=== PATIENT | female | born 1970 | race Caucasian/White ===

== ENCOUNTER 2017-04-17 08:49 | Observation (INO) | payer SELFPAY ==
[~2017-04-17] VITALS: Ht 170.2 cm; Wt 55.0 kg
[2017-04-17] VITALS (8 sets, daily range): BP systolic 119–131; BP diastolic 57–68; PULSE 62–79; RESP 16–20; TEMP 97.9–98.6; O2SAT 97–98
--- NOTE | 2017-04-17 09:09 | PD ---
HPI Chief Complaint: Chest Pain Time Seen by Provider: 09:07 Travel History International Travel<30 days: No Contact w/Intl Traveler<30days: No Traveled to known affect area: No History of Present Illness HPI 47-year-old female patient presents to the ER today for left-sided chest pains which she states was initially a 10 out of 10 when she woke up this morning along with nausea, vomiting, shortness of breath. She was given aspirin and nitroglycerin when EMS got there and states that her chest pain is now a 2 out of 10. She denies any previous history of chest pain. She states it radiates up to her jaw and down her left arm. Described as sharp. Modifying Factors: None Associated Signs & Symptoms: Left-sided chest pain Risk Factors: None PFSH Past Medical History Medical History: Denies Significant Hx Diminished Hearing: No Tetanus Vaccination: < 5 Years Influenza Vaccination: No ?: Not LMP: 04/06/17 Past Surgical History Section: Yes Social History Alcohol Use: Yes (weekly) Tobacco Use: Yes (PPD) Substance Use: No Allergies-Medications (Allergen,Severity, Reaction): Coded Allergies: Iodinated Contrast- Oral and IV Dye (Verified Allergy, Severe, 04/17/17) Review of Systems Except as stated in HPI: all other systems reviewed are Neg Physical Exam Narrative GENERAL: Well-developed middle age white female patient currently in mild distress. Awake and oriented 3. SKIN: Focused skin assessment warm/dry. HEAD: Atraumatic. Normocephalic. EYES: Pupils equal and round. No scleral icterus. No injection or drainage. ENT: No nasal bleeding or discharge. Mucous membranes pink and moist. NECK: Trachea midline. No JVD. CARDIOVASCULAR: Regular rate and rhythm. No murmur appreciated. Pulses are present and equal bilaterally. RESPIRATORY: No accessory muscle use. Clear to auscultation. Breath sounds equal bilaterally. GASTROINTESTINAL: Abdomen soft, non-tender, nondistended. Hepatic and splenic margins not palpable. MUSCULOSKELETAL: No obvious deformities. No clubbing. No cyanosis. No edema. NEUROLOGICAL: Awake and alert. No obvious cranial nerve deficits. Motor grossly within normal limits. Normal speech. PSYCHIATRIC: Appropriate mood and affect; insight and judgment normal. Data Data Last Documented VS Vital Signs Date Time Temp Pulse Resp B/P (MAP) Pulse Ox O2 Delivery O2 Flow Rate FiO2 04/17/17 09:00 75 18 98 Nasal Cannula 2.00 04/17/17 08:55 98.6 119/68 (85) Orders Orders Electrocardiogram (04/17/17 09:04) Ckmb (Isoenzyme) Profile (04/17/17 09:04) Complete Blood Count With Diff (04/17/17 09:04) Comprehensive Metabolic Panel (04/17/17 09:04) Magnesium (Mg) (04/17/17 09:04) Prothrombin Time / Inr (Pt) (04/17/17 09:04) Act Partial Throm Time (Ptt) (04/17/17 09:04) Troponin I (04/17/17 09:04) Chest, Single Ap (04/17/17 09:04) Ecg Monitoring (04/17/17 09:04) Bilateral Bp Monitoring (04/17/17 09:04) Iv Access Insert/Monitor (04/17/17 09:04) Oximetry (04/17/17 09:04) Oxygen Administration (04/17/17 09:04) Sodium Chloride 0.9% Flush (Ns Flush) (04/17/17 09:15) CKMB (04/17/17 09:00) CKMB% (04/17/17 09:00) Labs Laboratory Tests Test 04/17/17 09:00 White Blood Count 11.8 TH/MM3 Red Blood Count 4.59 MIL/MM3 Hemoglobin 15.9 GM/DL Hematocrit 45.2 % Mean Corpuscular Volume 98.4 FL Mean Corpuscular Hemoglobin 34.5 PG Mean Corpuscular Hemoglobin Concent 35.1 % Red Cell Distribution Width 12.6 % Platelet Count 377 TH/MM3 Mean Platelet Volume 8.0 FL Neutrophils (%) (Auto) 81.8 % Lymphocytes (%) (Auto) 11.5 % Monocytes (%) (Auto) 5.3 % Eosinophils (%) (Auto) 0.7 % Basophils (%) (Auto) 0.7 % Neutrophils # (Auto) 9.7 TH/MM3 Lymphocytes # (Auto) 1.4 TH/MM3 Monocytes # (Auto) 0.6 TH/MM3 Eosinophils # (Auto) 0.1 TH/MM3 Basophils # (Auto) 0.1 TH/MM3 CBC Comment DIFF FINAL Differential Comment Prothrombin Time 10.9 SEC Prothromb Time International Ratio 1.0 RATIO Activated Partial Thromboplast Time 27.2 SEC Blood Urea Nitrogen 12 MG/DL Creatinine 0.66 MG/DL Random Glucose 72 MG/DL Total Protein 7.5 GM/DL Albumin 4.2 GM/DL Calcium Level 9.0 MG/DL Magnesium Level 1.8 MG/DL Alkaline Phosphatase 89 U/L Aspartate Amino Transf (AST/SGOT) 36 U/L Alanine Aminotransferase (ALT/SGPT) 41 U/L Total Bilirubin 0.7 MG/DL Sodium Level 137 MEQ/L Potassium Level 4.6 MEQ/L Chloride Level 103 MEQ/L Carbon Dioxide Level 20.3 MEQ/L Anion Gap 14 MEQ/L Estimat Glomerular Filtration Rate 95 ML/MIN Total Creatine Kinase 206 U/L Creatine Kinase MB 1.5 NG/ML Creatine Kinase MB % 0.7 % Troponin I LESS THAN 0.02 NG/ML MDM Medical Decision Making Medical Screen Exam Complete: Yes Emergency Medical Condition: Yes Medical Record Reviewed: Yes Interpretation(s) EKG shows NSR, no ST elevation or depression, and no arrhythmias. No significant T-wave inversions. Laboratory Tests Test 04/17/17 09:00 White Blood Count 11.8 TH/MM3 (4.0-11.0) Hemoglobin 15.9 GM/DL (11.6-15.3) Mean Corpuscular Hemoglobin 34.5 PG (27.0-34.0) Neutrophils (%) (Auto) 81.8 % (16.0-70.0) Neutrophils # (Auto) 9.7 TH/MM3 (1.8-7.7) Random Glucose 72 MG/DL (74-106) Carbon Dioxide Level 20.3 MEQ/L (21.0-32.0) Total Creatine Kinase 206 U/L (26-192) Troponin I LESS THAN 0.02 NG/ML Differential Diagnosis Chest pains: ACS versus anxiety attack versus GI versus dysrhythmias Narrative Course Lab work, EKG was unremarkable. Chest x-ray did not show any signs of acute processes. At this point, my plan would be to admit her to chest pain center for further evaluation of this chest pain. She was given aspirin and nitroglycerin glycerin by EMS. Diagnosis Primary Impression: Chest pain Admitting Information Admitting Physician Requests: Admit Robbi Faustin MD Apr 17, 2017 09:09
[2017-04-17] MEDS ORDERED: SODIUM CHLORIDE 0.9% FLUSH 10 ML FLUSH IVF PRN (09:15)
[2017-04-17 09:21] LABS: AUTOMATED NEUTROPHIL # 9.7 TH/MM3 (1.8-7.7); BASOPHIL # 0.1 TH/MM3 (0-0.2); BASOPHIL % 0.7 % (0.0-2.0); EOSINOPHIL # 0.1 TH/MM3 (0-0.4); EOSINOPHIL % 0.7 % (0.0-4.0); HEMATOCRIT 45.2 % (35.0-46.0); HEMO FLAGS DIFF FINAL; LYMPH % 11.5 % (9.0-44.0); LYMPHOCYTE # 1.4 TH/MM3 (1.0-4.8); MEAN CELL VOLUME 98.4 FL (80.0-100.0); MEAN CORPUSCULAR HEMOGLOBIN 34.5 PG (27.0-34.0); MEAN CORPUSCULAR HGB CONC 35.1 % (32.0-36.0); MONO % 5.3 % (0.0-8.0); NEUT % 81.8 % (16.0-70.0); PLATELET COUNT 377 TH/MM3 (150-450); RED BLOOD COUNT 4.59 MIL/MM3 (4.00-5.30); RED CELL DISTRIBUTION WIDTH 12.6 % (11.6-17.2); WHITE BLOOD COUNT 11.8 TH/MM3 (4.0-11.0)
[2017-04-17 09:33] LABS: APTT (PATIENT) 27.2 SEC (24.3-30.1); PROTHROMBIN TIME - PATIENT 10.9 SEC (9.8-11.6)
[2017-04-17 09:42] LABS: ALT (GPT) 41 U/L (10-53)
--- NOTE | 2017-04-17 09:44 | RADRPT ---
EXAM DATE/TIME: 04/17/2017 09:26 [facility] COMPARISON: No previous studies available for comparison. INDICATIONS : Chest pains mid sternal radiating into left arm x2 days. No prior heart issues. MEDICAL HISTORY : None. SURGICAL HISTORY : None. ENCOUNTER: Initial ACUITY: 2 days PAIN SCORE: 9/10 LOCATION: Left chest FINDINGS: A single view of the chest demonstrates the lungs to be symmetrically aerated without evidence of mas s, infiltrate or effusion. The cardiomediastinal contours are unremarkable. Osseous structures are intact. CONCLUSION: 1. No acute cardiopulmonary disease. Azeem Garcia MD on April 17, 2017 at 9:42 Board Certified Radiologist. This report was verified electronically.
[2017-04-17 09:45] LABS: ALKALINE PHOSPHATASE 89 U/L (45-117); CREATINE KINASE 206 U/L (26-192); TOTAL BILIRUBIN ADULT 0.7 MG/DL (0.2-1.0)
[2017-04-17 10:00] LABS: CKMB 1.5 NG/ML (0.5-3.6)
[2017-04-17 10:07] LABS: ANION GAP 14 MEQ/L (5-15); AST (GOT) 36 U/L (15-37); BICARBONATE 20.3 MEQ/L (21.0-32.0); BLOOD UREA NITROGEN 12 MG/DL (7-18); CHLORIDE 103 MEQ/L (98-107); GLOMERULAR FILTRATION RATE 95 ML/MIN (>89); MAGNESIUM 1.8 MG/DL (1.5-2.5); POTASSIUM 4.6 MEQ/L (3.5-5.1); SODIUM (NA) 137 MEQ/L (136-145)
[2017-04-17] MEDS ORDERED: ACETAMINOPHEN 500 MG CPLT PO PRN (11:00)
[2017-04-17] MEDS ORDERED: NITROGLYCERIN 0.4 MG SL 25 TABS/BTL SL PRN (11:00)
[2017-04-17] MEDS ORDERED: ONDANSETRON HCL 4 MG/2 ML VIAL IV PRN (11:00)
[2017-04-17 13:04] LABS: CREATINE KINASE 214 U/L (26-192)
[2017-04-17 13:18] LABS: CKMB 1.6 NG/ML (0.5-3.6)
--- NOTE | 2017-04-17 14:16 | HHI.HP ---
HPI Primary Care Physician No Primary Care Physician Chief Complaint Chest pain History of Present Illness 47-year-old female with no significant medical history presents to emergency room for further evaluation of intermittent chest pain. Onset 10-14 days ago. Location left anterior chest characterized as stabbing. No radiation of pain, reports a numbness sensation in left arm and fingers. Associated symptoms include nausea, dizziness, and "feeling extremely hot." Denying vomiting or shortness of breath. Duration varies, currently chest pain free. No injury, fall, or known trauma. Taking a deep breath makes pain worst. No known relieving factors. Denies similar pain in the past. Reports this morning upon awakening she felt left neck discomfort described as "I slept on if wrong." Then around 8 am she developed severe left anterior chest pain. Her boyfriend reports she grabbed her chest then passed out. He called EMS. She reports only briefly losing consciousness. Review of Systems General: No fatigue,weakness, fever, chills, recent illness, or change in appetite. Has been in her general state of health. HEENT: Intermittent GROSS past 2 weeks. No vision changes, no nasal congestion or drainage, no dysphasia. CV: As stated above. No current chest pain or pressure. No palpitations. Dizziness has resolved. No intermittent leg pain with ambulation. RESP: Reports smoker's cough" nonproductive. No SOB, wheeze, recent URI, or hemoptysis GI: vo nausea resolved. No vomiting, bowel changes, diarrhea, pain, melena, or blood in the stool. 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 Reports regular, unchanged menses. EXT: No lower leg edema, no paraesthesias MS: No discomfort or change in ROM, no recent injury, no trauma or fall NEURO: As stated above. No difficulty with balance, no history of seizures, motor/sensory deficits PSYCH: No current anxiety. No depression, situational stress, or suicidal ideation. History of "easily becoming upset and getting anxious." SKIN: No rashes, no concerning lesions Past Family Social History Allergies: Coded Allergies: Iodinated Contrast- Oral and IV Dye (Verified Allergy, Severe, 04/17/17) Past Medical History None Past Surgical History Reported Medications None Active Ordered Medications Current Medications Medications (Trade) Dose Ordered Sig/Kinjal Route Start Time Stop Time Status Last Admin (NS Flush) 2 ml UNSCH PRN IVF 04/17/17 09:15 (NS Flush) 2 ml BID IV FLUSH 04/17/17 21:00 (Tylenol) 500 mg Q4H PRN PO 04/17/17 11:00 (Zofran Inj) 4 mg Q6H PRN IV 04/17/17 11:00 (Nitrostat Sl) 0.4 mg Q5M PRN SL 04/17/17 11:00 (Aspirin) 325 mg DAILY PO 04/18/17 09:00 Family History Unknown-adopted. Social History No known diabetes, hypertension, coronary artery disease, or hyperlipidemia. Has not seen a PCP in 20 years. Smokes one pack/daily cigarettes since age 28. Occasional alcohol reports 2 beers twice weekly. Denies any illegal drug use. Past cardiac testing None Physical Exam Vital Signs Vital Signs Date Time Temp Pulse Resp B/P (MAP) Pulse Ox O2 Delivery O2 Flow Rate FiO2 04/17/17 12:00 62 04/17/17 11:09 99 Room Air 04/17/17 11:05 98.2 76 18 131/59 (83) 98 04/17/17 11:03 98 Nasal Cannula 2.00 04/17/17 09:00 75 18 98 Nasal Cannula 2.00 04/17/17 08:55 98.6 79 20 119/68 (85) 98 Physical Exam GENERAL: Alert WN, WD, NAD, pleasant, female who appears older than stated age. HEAD: NC, AT EYES: Sclera clear, conjunctiva without injection, pupils equal and round ENT: Mucous membranes pink and moist NECK: Supple, no masses, trachea midline CV: RRR, without murmur, rub, gallop, no JVD, S1-S2 no S3-S4. No carotid bruits. Chest wall nontender with palpation. RESP: Diminished lungs throughout bilateral, no crackles, wheeze, rhonchi, symmetrical chest rise, nonlabored, able to speak in full sentences ABD: Soft, NT, ND, no masses, positive bowel tones BACK: No CVAT EXT: Pulses +24, no dependent edema MS: Normal tone 4 extremities, nontender, no obvious deformities, full range of motion NEURO: CN II through CN XII grossly intact, motor strength 5/5 PSYCH: A+O 3, pleasant affect, appropriate speech, appropriate mood and affect , insight and judgment SKIN: Normal turgor, normal texture, no lesions, no rashes, even hair distribution Laboratory Laboratory Tests Test 04/17/17 09:00 04/17/17 12:02 White Blood Count 11.8 Red Blood Count 4.59 Hemoglobin 15.9 Hematocrit 45.2 Mean Corpuscular Volume 98.4 Mean Corpuscular Hemoglobin 34.5 Mean Corpuscular Hemoglobin Concent 35.1 Red Cell Distribution Width 12.6 Platelet Count 377 Mean Platelet Volume 8.0 Neutrophils (%) (Auto) 81.8 Lymphocytes (%) (Auto) 11.5 Monocytes (%) (Auto) 5.3 Eosinophils (%) (Auto) 0.7 Basophils (%) (Auto) 0.7 Neutrophils # (Auto) 9.7 Lymphocytes # (Auto) 1.4 Monocytes # (Auto) 0.6 Eosinophils # (Auto) 0.1 Basophils # (Auto) 0.1 CBC Comment DIFF FINAL Differential Comment Prothrombin Time 10.9 Prothromb Time International Ratio 1.0 Activated Partial Thromboplast Time 27.2 Blood Urea Nitrogen 12 Creatinine 0.66 Random Glucose 72 Total Protein 7.5 Albumin 4.2 Calcium Level 9.0 Magnesium Level 1.8 Alkaline Phosphatase 89 Aspartate Amino Transf (AST/SGOT) 36 Alanine Aminotransferase (ALT/SGPT) 41 Total Bilirubin 0.7 Sodium Level 137 Potassium Level 4.6 Chloride Level 103 Carbon Dioxide Level 20.3 Anion Gap 14 Estimat Glomerular Filtration Rate 95 Total Creatine Kinase 206 214 Creatine Kinase MB 1.5 1.6 Creatine Kinase MB % 0.7 0.7 Troponin I LESS THAN 0.02 LESS THAN 0.02 Result Diagram: 04/17/1789904/17/17899 Imaging Last Impressions Chest X-Ray 04/17/17903 Signed Impressions: Service Date/Time: Monday, April 17, 2017 09:26 - CONCLUSION: 1. No acute cardiopulmonary disease. Azeem Garcia MD Course EKG Normal sinus rhythm, normal axis, no st t segment changes Caprini VTE Risk Assessment Caprini VTE Risk Assessment: No/Low Risk (score <= 1) Caprini Risk Assessment Model Point Value = 1 Point Value = 2 Point Value = 3 Point Value = 5 Age 41-60 Minor surgery BMI > 25 kg/m2 Swollen legs Varicose veins or History of unexplained or recurrent spontaneous Oral contraceptives or hormone replacement Sepsis (< 1 month) Serious lung disease, including pneumonia (< 1 month) Abnormal pulmonary function Acute myocardial infarction Congestive heart failure (< 1 month) History of inflammatory bowel disease Medical patient at bed rest Age 61-74 Arthroscopic surgery Major open surgery (> 45 min) Laparoscopic surgery (> 45 min) Malignancy Confined to bed (> 72 hours) Immobilizing plaster cast Central venous access Age >= 75 History of VTE Family history of VTE Factor V Leiden Prothrombin [id number] Lupus anticoagulant Anticardiolipin antibodies Elevated serum homocysteine Heparin-induced thrombocytopenia Other congenital or acquired thrombophilia Stroke (< 1 month) Elective arthroplasty Hip, pelvis, or leg fracture Acute spinal cord injury (< 1 month) Prophylaxis Regimen Total Risk Factor Score Risk Level Prophylaxis Regimen 0-1 Low Early ambulation 2 Moderate Order ONE of the following: *Sequential Compression Device (SCD) *Heparin 5000 units SQ BID 3-4 Higher Order ONE of the following medications: *Heparin 5000 units SQ TID *Enoxaparin/Lovenox 40 mg SQ daily (WT < 150 kg, CrCl > 30 mL/min) *Enoxaparin/Lovenox 30 mg SQ daily (WT < 150 kg, CrCl > 10-29 mL/min) *Enoxaparin/Lovenox 30 mg SQ BID (WT < 150 kg, CrCl > 30 mL/min) AND/OR *Sequential Compression Device (SCD) 5 or more Highest Order ONE of the following medications: *Heparin 5000 units SQ TID (Preferred with Epidurals) *Enoxaparin/Lovenox 40 mg SQ daily (WT < 150 kg, CrCl > 30 mL/min) *Enoxaparin/Lovenox 30 mg SQ daily (WT < 150 kg, CrCl > 10-29 mL/min) *Enoxaparin/Lovenox 30 mg SQ BID (WT < 150 kg, CrCl > 30 mL/min) AND *Sequential Compression Device (SCD) Assessment and Plan Assessment and Plan #1 Atypical chest pain-admitted to chest pain center. Rule out with 3 sets of cardiac enzymes and EKG. Will be seen and evaluated by Dr. Irene Carter this afternoon. Discussed possibly of completing an exercise stress test this evening and if unremarkable will discharge later this evening. Patient agreeable to plan of care. #2 Tobacco use-strongly encouraged tobacco cessation. Discussed chest discomfort may be pleuritic in nature from smoking. #3 Syncope episode-continue to monitor on telemetry, possible vagal response. 18:10 Attempted exercise treadmill test. Unable to complete due to leg fatigue and dyspnea. Walked 5:31 seconds, made target heart rate of 79%, requested to stop exam. Dr. Carter notified. Monitor overnight and plan for Lexiscan in am. Aniyah Stafford Apr 17, 2017 14:16
[2017-04-17 16:21] LABS: CREATINE KINASE 171 U/L (26-192)
[2017-04-17 16:33] LABS: CKMB 1.5 NG/ML (0.5-3.6)
--- NOTE | 2017-04-17 16:58 | EKG ---
Date Performed: 04/17/2017 Time Performed: 15:52:32 PTAGE: 47 years EKG: Sinus rhythm NORMAL ECG Since PREVIOUS TRACING , no significant change noted PREVIOUS TRACIN04/17/2017 08.59 DOCTOR: Irene Carter Interpretating Date/Time 04/17/2017 16:56:56
--- NOTE | 2017-04-17 17:00 | EKG ---
Date Performed: 04/17/2017 Time Performed: 08:59:20 PTAGE: 47 years EKG: Sinus rhythm NORMAL ECG NO PREVIOUS TRACING DOCTOR: Irene Carter Interpretating Date/Time 04/17/2017 16:59:00
[2017-04-17] MEDS: SODIUM CHLORIDE 0.9% FLUSH 10 ML FLUSH IV FLUSH SCH (20:03)
[2017-04-18 00:32] VITALS: BP 109/59; PULSE 84; RESP 18; TEMP 98.2; O2SAT 99
[2017-04-18 04:23] VITALS: BP 113/69; PULSE 65; RESP 16; TEMP 98.2; O2SAT 98
[2017-04-18 07:42] VITALS: O2SAT 98
[2017-04-18 07:48] VITALS: BP 109/65; PULSE 72; RESP 18; TEMP 98.5; O2SAT 97
[2017-04-18 08:10] VITALS: PULSE 62
[2017-04-18] MEDS ORDERED: ASPIRIN 325 MG TAB PO SCH (09:00)
[2017-04-18] MEDS ORDERED: REGADENOSON INJ 0.4 MG/5 ML SYR ONE (09:52)
--- NOTE | 2017-04-18 11:18 | RADRPT ---
EXAM DATE/TIME: 04/18/2017 09:03 [facility] COMPARISON: No previous studies available for comparison. INDICATIONS : Anterior chest pain for two weeks. Angina. DOSE: 25.7 mCi Tc99m Myoview at stress. 8.5 mCi Tc99m Myoview at rest. 0.4 mg Lexiscan STRESS SYMPTOMS: Dyspnea, dizziness, tingling and facial flush. EJECTION FRACTION: 67% MEDICAL HISTORY : None SURGICAL HISTORY : section. ENCOUNTER: Initial ACUITY: 2 weeks PAIN SCALE: 8/10 LOCATION: Midsternal chest TECHNIQUE: The patient underwent pharmacologic stress with infusion of prescribed dose. Continuous ECG tracing was monitored during stress. Gated SPECT imaging was performed after stress and conventional SPECT i maging was performed at rest. The examination was performed on a SPECT/CT scanner, both attenuation and non-corrected datasets were reviewed. FINDINGS: DISTRIBUTION: The maximum perfused segment at stress is in the anterolateral wall. PERFUSION STUDY: The pattern of perfusion at stress is within normal limits without evidence of stress-induced perfusi on defects or evidence of redistribution.. GATED STUDY: There is intact wall motion and thickening without hypokinetic or dyskinetic segments. CONCLUSION: 1. No evidence of stress-induced ischemia. 2. Intact wall motion the 67% ejection fraction. RISK CATEGORY: Low (<1% Annual Mortality Rate) Milind Jama MD on April 18, 2017 at 11:09 Board Certified Radiologist. This report was verified electronically.
[2017-04-18] MEDS: SODIUM CHLORIDE 0.9% FLUSH 10 ML FLUSH IV FLUSH SCH (11:27)
--- NOTE | 2017-04-18 11:38 | TR ---
Date Performed: 04/18/2017 Time Performed: 09:56:55 DOCTOR: Azeem Diaz DRUG LIST: CLINICAL HISTORY: REASON FOR TEST: CHEST PAIN REASON FOR ENDING: OBSERVATION: CONCLUSION: Lexiscan stress test was performed under standard four minute protocol. Radionuclid e was injected one minute prior to ending the test. No electrocardiographic abormalities were present to suggest ischemia. Nuclear imaging and interpretation are pending. COMMENTS:
--- NOTE | 2017-04-18 11:39 | TR ---
Date Performed: 04/17/2017 Time Performed: 17:39:16 DOCTOR: Azeem Diaz DRUG LIST: CLINICAL HISTORY: REASON FOR TEST: Chest painB REASON FOR ENDING: OBSERVATION: CONCLUSION: Husam protocol attempts. Stopped sec to patient leg fatigue and shortness of breath. Patient requested to stop test. Maximum IF=634 Target HR Achieved=79.0% Maximum YG=849/78 Total Exer cise Time=5:41. No reprod chest pain/discomfort. Complaints of shortness of breath and hurts to take deep breath during exam. Approx 1mm slow, horizional upsloping st depression inferiorly, anteriorly, and lateral. Normal bp response. Recovery quick and unremarkable. Plan for chemcial stress test in [facility]. COMMENTS: Patient exercised using the Husam protocol. No electrocardiographic changes were seen to suggest ischemia. Hemodynamic response to exercise was normal. No significant arrhythmia was prese nt.
[2017-04-18 12:05] VITALS: BP 116/58; PULSE 63; PULSE 64; RESP 18; TEMP 98.4; O2SAT 98
--- NOTE | 2017-04-18 12:54 | HHI.DCPOC ---
Discharge Care Plan Diagnosis: (1) Chest pain, atypical (2) Tobacco abuse (3) Episode of syncope Goals to Promote Your Health * To prevent worsening of your condition and complications * To maintain your health at the optimal level Directions to Meet Your Goals Take your medications as prescribed Follow your dietary instruction Follow activity as directed Keep your appointments as scheduled Take your immunizations and boosters as scheduled If your symptoms worsen call your PCP, if no PCP go to Urgent Care Center or Emergency Room Smoking is Dangerous to Your Health. Avoid second hand smoke Call the 24-hour hour crisis hotline for domestic abuse at [place] Agrawal Apr 18, 2017 12:54
== END 2017-04-18 14:58 | disposition home or self-care (01) ==
LOC: NEPE 08:49 → NEDA 10:18 → NEPGCP 11:22
PROVIDERS: ADMIT Internal Medicine Interventional Cardiology; ATTEND Internal Medicine Interventional Cardiology
DX: R07.89 Other chest pain (principal); R55 Syncope and collapse; F17.210 Nicotine dependence, cigarettes, uncomplicated
CPT/HCPCS: 71010; 78452; 80053; 82550; 82552; 83735; 84484; 85025; 85610; 85730; 93005; 93017; 99285; A9502; G0378; J2785